=== PATIENT | male | born 1970 | race Caucasian/White ===

== ENCOUNTER → 2021-01-17 10:45 | Outpatient (CLI) | payer BC, SELFPAY ==
--- NOTE | 2021-01-17 10:58 | XR_ITS ---
PROCEDURE: XR CERVICAL SPINE 5V CLINICAL INDICATION: CERVICAL RADICULOPATHY COMPARISON: No exams were available for comparison FINDINGS: Minor multilevel degenerative changes of the cervical spine with the anterior osteophyte formation and minor disc height loss. Minor facet joint arthropathy is noted. No significant foraminal narrowing is noted. The C1-2 alignment is unremarkable. Bone density is normal. Prevertebral soft tissues and the visualized lung apices are clear. IMPRESSION: Minor degenerative changes of the visualized cervical spine. No acute fractures or listhesis. Dictated by: Monica Cortes 01/17/2021 14:12 Monica Cortes in [facility] 01/17/2021 14:12
== END ==
PROVIDERS: PCP Family Medicine; Visit Provider Family Medicine
DX: M54.12 Radiculopathy, cervical region (principal)
CPT/HCPCS: 72050

== ENCOUNTER → 2021-10-30 08:04 | Outpatient (CLI) | payer BC, SELFPAY ==
[2021-10-30 08:31] LABS: Basophils # 0.1 K/mm3 (0-0.2); Basophils % 1.7 % (0.1-2.0); Eosinophils # 0.2 K/mm3 (0.0-0.4); Eosinophils % 4.4 % (0.1-12.0); Hematocrit 46.3 % (42.0-52.0); Hemoglobin 15.2 g/dL (14.1-18.0); Lymphocytes % 37.4 % (10-50); Mean Corpuscular HGB Conc 32.9 g/dL (31.8-35.4); Mean Corpuscular Hemoglobin 30.8 pg (27.0-31.2); Mean Corpuscular Volume 93.6 fl (80-94); Mean Platelet Volume 8.5 fl (7.4-10.4); Monocytes # 0.4 K/mm3 (0.1-1.0); Monocytes % 7.4 % (1.7-9.3); Neutrophils # 2.7 K/mm3 (1.8-7.8); Neutrophils % 49.2 % (37.0-80.0); Platelet Count 243 K/mm3 (142-424); Red Blood Count 4.94 M/mm3 (4.60-6.20); Red Cell Distribution Width 13.1 % (11.5-17.5); White Blood Count 5.4 K/mm3 (4.8-10.8)
[2021-10-30 08:46] LABS: Chloride 97 mmol/L (98-107); Sodium 136 mmol/L (136-145)
[2021-10-30 08:49] LABS: Alanine Aminotransferase 53 U/L (12-78); Albumin Level 4.4 g/dl (3.5-5.0); Albumin/Globulin Ratio 1.6 (1.1-1.8); Alkaline Phosphatase 54 U/L (38-126); Aspartate Amino Transferase 30 U/L (17-59); Bilirubin,Total 0.9 mg/dl (0.2-1.3); Blood Urea Nitrogen 18 mg/dl (9-20); Calcium 8.8 mg/dl (8.4-10.2); Carbon Dioxide 31 mmol/L (22.0-30.0); Chol/HDL Ratio 3.7 (1-3.5); Cholesterol 127 mg/dl (140-200); Estimated Glomerular Filt Rate 70 ml/min (>60); GFR (African American) 85 ML/MIN (>60); Globulin 2.8 g/dL (1.3-3.2); Glucose 235 mg/dl (74-100); HDL Cholesterol 34 mg/dl (40-60); Total Protein,Serum 7.2 g/dl (6.3-8.2); Triglycerides 197 mg/dl (30-150); VLDL Cholesterol 39 mg/dL (0-40)
[2021-10-30 08:53] LABS: Microalbumin < 6.000 mg/L (0-16.7)
[2021-10-30 09:00] LABS: Direct LDL Cholesterol 67.48 mg/dL (100-129)
[2021-10-30 09:02] LABS: Hemoglobin A1C 8.8 % (4.0-6.0)
[2021-10-30 09:07] LABS: T4 (Thyroxine) 10.7 ug/dl (5.53-11.0)
[2021-10-30 09:20] LABS: Thyroid Stimulating Hormone 1.96 uIU/mL (0.465-4.68)
[2021-10-31 12:16] LABS: C-Peptide 4.6 ng/mL (1.1-4.4)
== END ==
LOC: LAB 08:05
PROVIDERS: Visit Provider Nurse Practitioner Family
DX: E11.9 Type 2 diabetes mellitus without complications (principal); E66.9 Obesity, unspecified; Z79.84 Long term (current) use of oral hypoglycemic drugs; Z68.41 Body mass index [BMI] 40.0-44.9, adult
CPT/HCPCS: 36415; 80053; 80061; 82043; 83036; 84403; 84436; 84443; 84681; 85025

== ENCOUNTER → 2021-11-12 12:32 | Outpatient (CLI) | payer BC, SELFPAY ==
[2021-11-12 13:48] LABS: Anion Gap 18.4 mEq/L (5-15); Blood Urea Nitrogen 23 mg/dl (9-20); Calcium 9.6 mg/dl (8.4-10.2); Carbon Dioxide 26 mmol/L (22.0-30.0); Chloride 99 mmol/L (98-107); Estimated Glomerular Filt Rate 70 ml/min (>60); GFR (African American) 85 ML/MIN (>60); Glucose 145 mg/dl (74-100); Potassium 4.4 mmoL/L (3.5-5.1); Sodium 139 mmol/L (136-145)
--- NOTE | 2021-11-12 14:00 | PC.NURSE ---
PFT and 6 Minute walk test completed on Pt without incident. Pt given Albuterol 0.083% per written protocol, via [facility] Pt tolerated tx well.
== END ==
LOC: RT 12:34
PROVIDERS: Physician Assistant; PCP Nurse Practitioner Family; Visit Provider Nurse Practitioner Family
DX: R06.02 Shortness of breath (principal); I50.9 Heart failure, unspecified; R07.89 Other chest pain; R06.00 Dyspnea, unspecified; E11.69 Type 2 diabetes mellitus with other specified complication; E78.5 Hyperlipidemia, unspecified; R94.30 Abnormal result of cardiovascular function study, unspecified; Z79.84 Long term (current) use of oral hypoglycemic drugs
CPT/HCPCS: 36415; 80048; 93306; 94060; 94618; 94726; 94729

== ENCOUNTER → 2021-12-21 09:53 | Outpatient (CLI) | payer BC, SELFPAY ==
[2021-12-21 11:32] LABS: Anion Gap 11.3 mEq/L (5-15); Blood Urea Nitrogen 19 mg/dl (9-20); Calcium 9.7 mg/dl (8.4-10.2); Carbon Dioxide 33 mmol/L (22.0-30.0); Chloride 100 mmol/L (98-107); Estimated Glomerular Filt Rate 70 ml/min (>60); GFR (African American) 85 ML/MIN (>60); Glucose 251 mg/dl (74-100); Potassium 4.3 mmoL/L (3.5-5.1); Sodium 140 mmol/L (136-145)
== END ==
PROVIDERS: Visit Provider Internal Medicine Cardiovascular Disease
DX: R06.02 Shortness of breath (principal); I50.9 Heart failure, unspecified; E78.5 Hyperlipidemia, unspecified; I77.810 Thoracic aortic ectasia; R94.30 Abnormal result of cardiovascular function study, unspecified
CPT/HCPCS: 36415; 80048

== ENCOUNTER → 2021-12-25 13:25 | Outpatient (CLI) | payer BC, SELFPAY ==
--- NOTE | 2021-12-25 13:33 | CT_ITS ---
FINAL REPORT CLINICAL HISTORY: aortic root dilation FINDINGS: Axial CT images of the chest were obtained with contrast. Coronal reformatted images were also obtained. This study was performed with techniques to keep radiation doses as low as reasonably achievable, (ALARA). Individualized dose reduction techniques using automated exposure control or adjustment of mA and/or KV according to the patient''''s size were employed. There is a small probable cyst in the left lobe of the thyroid. There is no evidence of mediastinal or hilar mass or adenopathy.No axillary mass or adenopathy is identified. The ascending thoracic aorta is within normal limits measuring 33 mm. On lung window images, no pulmonary mass or dominant pulmonary nodule is identified. A calcified granuloma is seen in the right lung. There is mild bibasilar atelectasis or scarring. Limited images of the upper abdomen reveal fatty infiltration of the liver. The gallbladder is surgically absent. IMPRESSION: Ascending thoracic aorta within normal limits. Reviewed, Interpreted and Dictated by Kaleb Thomas III, MD Transcribed by Leland Hopkins Authenticated by Kaleb Thomas III, MD on 12/25/2021 03:35:21 PM [facility]
== END ==
PROVIDERS: PCP Nurse Practitioner Family; Visit Provider Internal Medicine Cardiovascular Disease
DX: R06.02 Shortness of breath (principal); I77.810 Thoracic aortic ectasia
CPT/HCPCS: 71260; Q9967

== ENCOUNTER → 2022-01-17 13:45 | Outpatient (CLI) | payer BC, SELFPAY ==
[2022-01-28 04:43] LABS: D001-IgE D pteronyssinus 0.15 kU/L (Class 0/I); D002-IgE D farinae 0.12 kU/L (Class 0/I); E001-IgE Cat Dander <0.10 kU/L (Class 0); E005-IgE Dog Dander 0.14 kU/L (Class 0/I); E072-IgE Mouse Urine <0.10 kU/L (Class 0); G002-IgE Bermuda Grass <0.10 kU/L (Class 0); G006-IgE Timothy Grass <0.10 kU/L (Class 0); I006-IgE Cockroach, German <0.10 kU/L (Class 0); Immunoglobulin E, Total 508 IU/mL (6-495); M001-IgE Penicillium chrysogen 0.48 kU/L (Class I); M002-IgE Cladosporium herbarum 0.64 kU/L (Class II); M003-IgE Aspergillus fumigatus 0.25 kU/L (Class 0/I); T001-IgE Maple/Box Elder <0.10 kU/L (Class 0); T003-IgE Common Silver Birch <0.10 kU/L (Class 0); T006-IgE Cedar, Mountain 0.22 kU/L (Class 0/I); T007-IgE Oak, White <0.10 kU/L (Class 0); T008-IgE Elm, American <0.10 kU/L (Class 0); T010-IgE Walnut <0.10 kU/L (Class 0); T011-IgE Maple Leaf Sycamore <0.10 kU/L (Class 0); T014-IgE Cottonwood <0.10 kU/L (Class 0); T015-IgE Ash, White <0.10 kU/L (Class 0); T022-IgE Pecan, Hickory <0.10 kU/L (Class 0); T070-IgE White Mulberry <0.10 kU/L (Class 0); W001-IgE Ragweed, Short <0.10 kU/L (Class 0); W011-IgE Thistle, Russian <0.10 kU/L (Class 0); W014-IgE Pigweed, Common <0.10 kU/L (Class 0); W018-IgE Sheep Sorrel <0.10 kU/L (Class 0)
== END ==
PROVIDERS: Internal Medicine Pulmonary Disease; PCP Nurse Practitioner Family
DX: R06.09 Other forms of dyspnea (principal); J45.40 Moderate persistent asthma, uncomplicated; J30.2 Other seasonal allergic rhinitis
CPT/HCPCS: 36415; 82785; 86003

== ENCOUNTER → 2022-06-28 11:24 | Outpatient (CLI) | payer SELFPAY | LOC: UTC.OUT 11:27 | PROVIDERS: PCP Nurse Practitioner Family; Visit Provider Physician Assistant | DX: Z02.4 Encounter for examination for driving license (principal) ==

== ENCOUNTER → 2022-07-04 08:32 | Outpatient (CLI) | payer BC, SELFPAY ==
[2022-07-04 14:23] LABS: Basophils # 0.1 K/mm3 (0-0.2); Basophils % 0.7 % (0.1-2.0); Eosinophils # 0.3 K/mm3 (0.0-0.4); Eosinophils % 4.2 % (0.1-12.0); Hematocrit 46.2 % (42.0-52.0); Hemoglobin 14.7 g/dL (14.1-18.0); Lymphocytes # 2.4 K/mm3 (0.7-4.5); Lymphocytes % 31.6 % (10-50); Mean Corpuscular HGB Conc 31.8 g/dL (31.8-35.4); Mean Corpuscular Volume 97.6 fl (80-94); Mean Platelet Volume 7.7 fl (7.4-10.4); Monocytes # 0.5 K/mm3 (0.1-1.0); Monocytes % 5.9 % (1.7-9.3); Neutrophils # 4.4 K/mm3 (1.8-7.8); Neutrophils % 57.6 % (37.0-80.0); Platelet Count 273 K/mm3 (142-424); Red Blood Count 4.73 M/mm3 (4.60-6.20); Red Cell Distribution Width 13.1 % (11.5-17.5); White Blood Count 7.7 K/mm3 (4.8-10.8)
[2022-07-04 14:27] LABS: Chloride 98 mmol/L (98-107)
[2022-07-04 14:28] LABS: Potassium 4.2 mmoL/L (3.5-5.1); Sodium 140 mmol/L (136-145)
[2022-07-04 14:30] LABS: Alanine Aminotransferase 34 U/L (12-78); Albumin Level 4.3 g/dl (3.5-5.0); Albumin/Globulin Ratio 1.5 (1.1-1.8); Alkaline Phosphatase 57 U/L (38-126); Anion Gap 14.2 mEq/L (5-15); Aspartate Amino Transferase 25 U/L (17-59); Bilirubin,Total 0.5 mg/dl (0.2-1.3); Blood Urea Nitrogen 13 mg/dl (9-20); Calcium 9.2 mg/dl (8.4-10.2); Carbon Dioxide 32 mmol/L (22.0-30.0); Cholesterol 136 mg/dl (140-200); Estimated Glomerular Filt Rate 78 ml/min (>60); GFR (African American) 94 ML/MIN (>60); Globulin 2.8 g/dL (1.3-3.2); Glucose 246 mg/dl (74-100); Total Protein,Serum 7.1 g/dl (6.3-8.2); Triglycerides 140 mg/dl (30-150); VLDL Cholesterol 28 mg/dL (0-40)
[2022-07-04 14:31] LABS: Chol/HDL Ratio 3.9 (1-3.5); HDL Cholesterol 35 mg/dl (40-60)
[2022-07-04 14:41] LABS: Creatinine,Urine Random 8 mg/dL (Not Estab.); Microalbumin < 6.000 mg/L (0-16.7)
[2022-07-04 14:43] LABS: Direct LDL Cholesterol 80.38 mg/dL (100-129)
[2022-07-04 15:46] LABS: Prostate Specific Ag Screen 0.7 ng/ml (0.0-4.0); Thyroid Stimulating Hormone 2.38 uIU/mL (0.465-4.68)
[2022-07-04 15:59] LABS: Hemoglobin A1C 8.8 % (4.0-6.0)
== END ==
PROVIDERS: PCP Physician Assistant; Visit Provider Physician Assistant
DX: E11.9 Type 2 diabetes mellitus without complications (principal); Z12.5 Encounter for screening for malignant neoplasm of prostate; E55.9 Vitamin D deficiency, unspecified; Z79.84 Long term (current) use of oral hypoglycemic drugs
CPT/HCPCS: 80053; 80061; 82043; 82306; 82570; 83036; 84443; 85025; G0103

== ENCOUNTER → 2022-07-04 19:54 | Outpatient (CLI) | payer BC, SELFPAY | PROVIDERS: PCP Physician Assistant; Visit Provider Internal Medicine Pulmonary Disease | DX: G47.33 Obstructive sleep apnea (adult) (pediatric) (principal); R06.83 Snoring; I10 Essential (primary) hypertension; E66.9 Obesity, unspecified; Z68.41 Body mass index [BMI] 40.0-44.9, adult | CPT/HCPCS: 95811 ==

== ENCOUNTER → 2023-04-17 12:53 | Outpatient (CLI) | payer OTHER, SELFPAY | PROVIDERS: PCP Physician Assistant; Visit Provider Internal Medicine Pulmonary Disease | DX: R06.02 Shortness of breath (principal) | CPT/HCPCS: 94060 ==

== ENCOUNTER 2023-07-19 17:38 | Emergency (ER) | payer OTHER, SELFPAY ==
--- NOTE | 2023-07-19 17:41 | XR_ITS ---
PROCEDURE INFORMATION: Exam: XR Right Ankle Exam date and time: 07/19/2023 5:56 PM Age: 53 years old Clinical indication: Pain; Ankle; Right; Additional info: Fall TECHNIQUE: Imaging protocol: Radiologic exam of the right ankle. Views: 3 or more views. COMPARISON: No relevant prior studies available. FINDINGS: Bones/joints: No acute fracture or malalignment. Minimal chronic posttraumatic avulsive changes to the medial ankle. Minimal calcaneal Achilles enthesopathy. Soft tissues: Anterolateral ankle soft tissue swelling. IMPRESSION: Anterolateral ankle soft tissue swelling. No acute osseous findings.
--- NOTE | 2023-07-19 17:44 | XR_ITS ---
PROCEDURE INFORMATION: Exam: XR Right Tibia and Fibula Exam date and time: 07/19/2023 5:57 PM Age: 53 years old Clinical indication: Pain; Lower leg; Right; Additional info: Fall TECHNIQUE: Imaging protocol: Radiologic exam of the right tibia and fibula. Views: 2 views. COMPARISON: CR XR ANKLE RT MIN 3V 07/19/2023 5:56 PM FINDINGS: Bones/joints: No acute fracture or malalignment. Minimal chronic posttraumatic avulsive changes to the medial ankle. Soft tissues: Anterolateral ankle soft tissue swelling. IMPRESSION: Anterolateral ankle soft tissue swelling. No acute osseous findings.
[2023-07-19 18:20] VITALS: BP 131/86; PULSE 104; RESP 18; TEMP 36.7; O2SAT 98; BMI 40.8
--- NOTE | 2023-07-19 18:32 | EXP.UTC ---
Discharge Plan Disposition Patient Disposition: Home, Self-Care Condition: Good Prescriptions Prescriptions: No Action ibuprofen 600 mg tablet 600 mg PO PRN Patient Comments: TAKE 1 TABLET BY MOUTH THREE TIMES DAILY aspirin [Adult Low Dose Aspirin] 81 mg tablet,delayed release (DR/EC) 81 mg PO DAILY Qty: 90 2RF albuterol sulfate 1.25 mg/3 mL solution for nebulization 1.25 mg INHALATION QID PRN (Reason: shortness of breath or wheezing) Qty: 75 1RF albuterol sulfate 90 mcg/actuation HFA aerosol inhaler 2 inh INHALATION Q6H PRN (Reason: shortness of breath or wheezing) 90 Days Qty: 8.5 3RF fluticasone propion-salmeterol [Advair Diskus] 100-50 mcg/dose blister with device 1 inh inhalation BID 90 Days Qty: 180 3RF fluticasone propionate [Flonase Allergy Relief] 50 mcg/actuation spray,suspension 1 spray intranasal BID 90 Days Qty: 16 3RF Rx Instructions: administer into each nostril atorvastatin 40 mg tablet 40 mg PO HS Qty: 90 3RF bupropion HCl 300 mg tablet extended release 24 hr 300 mg PO DAILY Qty: 90 1RF Steglatro 15 mg tablet See Rx Instructions .ROUTE .COMPLEX Qty: 90 3RF Dose Instruction: TAKE 1 TABLET BY MOUTH DAILY Rx Instructions: TAKE 1 TABLET BY MOUTH DAILY fenofibrate nanocrystallized 145 mg tablet See Rx Instructions .ROUTE .COMPLEX Qty: 90 3RF Dose Instruction: TAKE 1 TABLET BY MOUTH DAILY Rx Instructions: TAKE 1 TABLET BY MOUTH DAILY furosemide 40 mg tablet 40 mg PO BID Qty: 180 3RF glimepiride 4 mg tablet 4 mg PO DAILY Qty: 90 3RF metformin 1,000 mg tablet extended release 24hr 1,000 mg PO DAILY Qty: 90 3RF metoprolol succinate [Toprol XL] 50 mg tablet extended release 24 hr 50 mg PO DAILY Qty: 90 3RF spironolactone 50 mg tablet 50 mg PO DAILY Qty: 90 3RF ergocalciferol (vitamin D2) 1,250 mcg (50,000 unit) capsule 1,250 mcg PO WEEKLY Qty: 14 3RF Mounjaro 2.5 mg/0.5 mL pen injector 2.5 mg SQ WEEKLY 28 Days Qty: 2 0RF amoxicillin-pot clavulanate 875-125 mg tablet 1 tab PO BID 10 Days Qty: 20 1RF montelukast [Singulair] 10 mg tablet 10 mg PO DAILY Qty: 90 3RF losartan 100 mg tablet See Rx Instructions .ROUTE .COMPLEX Qty: 90 3RF Dose Instruction: TAKE 1 TABLET BY MOUTH DAILY Rx Instructions: TAKE 1 TABLET BY MOUTH DAILY Referrals Follow up/Referrals: Nimo Rowe PA [Primary Care Provider] - See instructions Odin Chairez DO [Staff Physician] - See instructions Yi George DPM [Staff Physician] - See instructions Activity Restrictions/Add. Instructions Additional Instructions/Restrictions: *weight bearing as tolerated Use crutches to get around *RICE, Rest the extremity, Ice 15-20 minutes 3-4 times daily, Compress- wear the jose wrap as discussed as much as possible to help reduce swelling and pain, Elevate the extremity when at rest *Walking boot is for support and help control swelling, use it except in the shower. Be sure that is not to tight but not to loose either *Elevate when resting? Make appointment with Podiatry or Orthopedics for further evaluation? *Ibuprofen 600-800mg every 6-8 hours as needed for pain an inflammation. If need something more can take Tylenol in between doses of Ibuprofen to help Immediately follow up with your family doctor for new or worsening of symptoms, or no noticeable improvement over the next 3-5 days Clinical Impressions Clinical Impression: Ankle sprain Qualifiers: Encounter type: initial encounter Involved ligament of ankle: unspecified ligament Laterality: right Qualified Code(s): S93.401A - Sprain of unspecified ligament of right ankle, initial encounter Instructions Patient Instructions: Ankle Sprain, How To Perform RICE (Rest, Ice, Compress, Elevate) Discharge ED Provider: Mckenna Razo [facility] [place] General Stated complaint: AO 07/19/23 2698 Right ankle injury Mod
[2023-07-19 18:53] VITALS: BP 131/86; PULSE 104; RESP 18; TEMP 36.7; O2SAT 98
== END 2023-07-19 18:55 | disposition home or self-care (01) ==
PROVIDERS: Emergency Provider Nurse Practitioner; PCP Physician Assistant
DX: S93.401A Sprain of unspecified ligament of right ankle, initial encounter (principal); E11.9 Type 2 diabetes mellitus without complications; E78.5 Hyperlipidemia, unspecified; J45.909 Unspecified asthma, uncomplicated; I11.0 Hypertensive heart disease with heart failure; I50.9 Heart failure, unspecified; Z79.84 Long term (current) use of oral hypoglycemic drugs; W17.2XXA Fall into hole, initial encounter
CPT/HCPCS: 73590; 73610; 99204; 99212; G0463

== ENCOUNTER 2023-09-11 09:45 | Outpatient (CLI) | payer BC, OTHER, SELFPAY ==
[2023-09-11 15:41] LABS: Adenovirus F 40/41, stool Not Detected (NotDetected); Astrovirus Not Detected (NotDetected); Campylobacter Not Detected (NotDetected); Clostridium Difficile A/B, PCR Not Detected (NotDetected); Cryptosporidium Not Detected (NotDetected); Cyclospora Cayetanesis Not Detected (NotDetected); Entamoeba histolytica Not Detected (NotDetected); Enteroaggregative E coli Not Detected (NotDetected); Enteropathogenic E coli Not Detected (NotDetected); Enterotoxigenic E coli Not Detected (NotDetected); Giardia lamblia Not Detected (NotDetected); Norovirus Not Detected (NotDetected); Plesimonas Shigalloides, PCR Not Detected (NotDetected); Salmonella, PCR Not Detected (NotDetected); Sapovirus Not Detected (NotDetected); Shiga-like toxin E coli Not Detected (NotDetected); Shigella Enterovasive E coli Not Detected (NotDetected); Vibrio Cholerae Not Detected (NotDetected); Vibrio, PCR Not Detected (NotDetected); Yersinia Entercolitica, PCR Not Detected (NotDetected)
[2023-09-11 19:10] LABS: Chloride 101 mmol/L (98-107); Hemoglobin A1C 7.8 % (4.0-6.0); Sodium 137 mmol/L (136-145)
[2023-09-11 19:11] LABS: Potassium 3.6 mmoL/L (3.5-5.1)
[2023-09-11 19:13] LABS: Alanine Aminotransferase 57 U/L (12-78); Albumin Level 3.7 g/dl (3.5-5.0); Albumin/Globulin Ratio 1.3 (1.1-1.8); Alkaline Phosphatase 54 U/L (38-126); Anion Gap 12.6 mEq/L (5-15); Aspartate Amino Transferase 38 U/L (17-59); Bilirubin,Total 0.6 mg/dl (0.2-1.3); Blood Urea Nitrogen 12 mg/dl (9-20); Calcium 8.1 mg/dl (8.4-10.2); Carbon Dioxide 27 mmol/L (22.0-30.0); Cholesterol 72 mg/dl (140-200); Estimated Glomerular Filt Rate 63 ml/min (>60); GFR (African American) 76 ML/MIN (>60); Globulin 2.8 g/dL (1.3-3.2); Glucose 232 mg/dl (74-100); Total Protein,Serum 6.5 g/dl (6.3-8.2); Triglycerides 159 mg/dl (30-150); VLDL Cholesterol 32 mg/dL (0-40)
[2023-09-11 19:14] LABS: HDL Cholesterol 17 mg/dl (40-60)
[2023-09-11 19:17] LABS: Chol/HDL Ratio 4.2 (1-3.5)
[2023-09-11 19:25] LABS: Direct LDL Cholesterol 43.51 mg/dL (100-129)
[2023-09-11 19:44] LABS: Thyroid Stimulating Hormone 0.73 uIU/mL (0.465-4.68)
[2023-09-11 19:46] LABS: 25-OH Vitamin D, Total 41.1 ng/mL (30-100)
[2023-09-11 19:58] LABS: Basophils # 0.1 K/mm3 (0-0.2); Basophils % 1.8 % (0.1-2.0); Eosinophils # 0.1 K/mm3 (0.0-0.4); Eosinophils % 1.4 % (0.1-12.0); Hematocrit 41.2 % (42.0-52.0); Hemoglobin 14.3 g/dL (14.1-18.0); Lymphocytes # 1.8 K/mm3 (0.7-4.5); Lymphocytes % 34.7 % (10-50); Mean Corpuscular HGB Conc 34.7 g/dL (31.8-35.4); Mean Corpuscular Hemoglobin 32.8 pg (27.0-31.2); Mean Corpuscular Volume 94.5 fl (80-94); Mean Platelet Volume 9.2 fl (7.4-10.4); Monocytes # 0.4 K/mm3 (0.1-1.0); Neutrophils # 2.9 K/mm3 (1.8-7.8); Neutrophils % 55.2 % (37.0-80.0); Platelet Count 206 K/mm3 (142-424); Red Blood Count 4.36 M/mm3 (4.60-6.20); Red Cell Distribution Width 13.3 % (11.5-17.5); White Blood Count 5.2 K/mm3 (4.8-10.8)
[2023-09-11 21:12] LABS: Prostate Specific Ag Screen 0.4 ng/ml (0.0-4.0)
[2023-09-16 03:43] LABS: Rotavirus A Detected (NotDetected)
== END 2023-09-12 23:59 | disposition home or self-care (01) ==
PROVIDERS: PCP Physician Assistant; Visit Provider Physician Assistant
DX: E11.9 Type 2 diabetes mellitus without complications (principal); R19.7 Diarrhea, unspecified; A08.0 Rotaviral enteritis; E66.9 Obesity, unspecified; Z68.41 Body mass index [BMI] 40.0-44.9, adult; Z79.899 Other long term (current) drug therapy; Z12.5 Encounter for screening for malignant neoplasm of prostate
CPT/HCPCS: 80053; 80061; 82306; 83036; 84443; 85025; 87507; G0103

== ENCOUNTER 2023-11-21 08:29 | Outpatient (CLI) | payer BC, OTHER, SELFPAY ==
--- NOTE | 2023-11-21 08:30 | CT_ITS ---
FINAL REPORT TECHNIQUE: Axial CT images of the abdomen were obtained without contrast. Coronal reformatted images were also obtained.This study was performed with techniques to keep radiation doses as low as reasonably achievable (ALARA). Individualized dose reduction techniques using automated exposure control or adjustment of mA and/or kV according to the patient''s size were employed. CLINICAL HISTORY: hernia FINDINGS: The lung bases are clear. There is fatty infiltration of the liver. The patient is status post cholecystectomy. The pancreas appears normal. The spleen size is within normal limits. There is a 30 mm mid right renal mass which can not be accurately characterized without contrast, favor a cyst. There is no evidence of adenopathy. No abnormal fluid collection is seen. No localized inflammatory processes identified. The appendix is partially visualized and appears normal. No hernia is identified. IMPRESSION: No hernia identified. Reviewed, Interpreted and Dictated by Kaleb Thomas III, MD Transcribed by Zoe Cruz Authenticated and . [facility]
== END 2023-11-21 23:59 ==
LOC: RAD 08:30
PROVIDERS: PCP Family Medicine; Visit Provider Family Medicine
DX: K43.9 Ventral hernia without obstruction or gangrene (principal); K52.9 Noninfective gastroenteritis and colitis, unspecified
CPT/HCPCS: 74150